=== PATIENT | male | born 1960 | race African-American/Black ===

== ENCOUNTER 2017-06-19 10:54 | Emergency (ER) | payer MEDICAID ==
[~2017-06-19] VITALS: Ht 170.2 cm; Wt 78.0 kg
[2017-06-19 12:21] VITALS: BP 109/71
== END 2017-06-19 14:20 | disposition home or self-care (01) ==
LOC: ER 13:38
DX: J39.9 Disease of upper respiratory tract, unspecified (principal); J44.1 Chronic obstructive pulmonary disease with (acute) exacerbation; R03.0 Elevated blood-pressure reading, without diagnosis of hypertension; K21.9 Gastro-esophageal reflux disease without esophagitis
CPT/HCPCS: 71046; 99284

== ENCOUNTER 2019-06-03 10:23 | Emergency (ER) | payer MEDICAID ==
[~2019-06-03] VITALS: Ht 167.6 cm; Wt 78.0 kg
[2019-06-03] MEDS ORDERED: ALBUTEROL (0.083%) 2.5MG/3ML NEB HHN STA (11:19)
[2019-06-03] MEDS ORDERED: IPRATROPIUM BROMIDE (0.02%) 0.5MG/2.5ML NEB HHN STA (11:19)
[2019-06-03] MEDS ORDERED: PREDNISONE 20MG TABLET PO STA (11:19)
[2019-06-03] MEDS ORDERED: PREDNISONE 20MG TABLET PO ONE (11:45)
[2019-06-03 13:51] VITALS: BP 140/80
== END 2019-06-03 13:52 | disposition home or self-care (01) ==
LOC: ER 10:23
DX: J44.1 Chronic obstructive pulmonary disease with (acute) exacerbation (principal)
CPT/HCPCS: 71045; 94640; 99283; J7512; Z7610

== ENCOUNTER 2020-05-10 10:42 | Emergency (ER) | payer MEDICAID ==
[~2020-05-10] VITALS: Ht 170.2 cm; Wt 75.0 kg
[2020-05-10] MEDS ORDERED: KETOROLAC 60MG/2ML VIAL IM ONE (11:30)
[2020-05-10 12:52] LABS: CLARITY URINE CLEAR (CLEAR); COLOR URINE YELLOW (YELLOW); KETONES URINE NEGATIVE (NEGATIVE); LEUKOCYTE ESTERASE URINE NEGATIVE (NEGATIVE); NITRITE URINE NEGATIVE (NEGATIVE); OCCULT BLOOD URINE NEGATIVE (NEGATIVE); PH URINE 5.5 (4.5-8.0); PROTEIN URINE NEGATIVE (NEGATIVE); SPECIFIC GRAVITY URINE 1.016 (1.005-1.030); UROBILINOGEN URINE 0.2 E.U./dL (0.2-1.0)
[2020-05-10 14:04] VITALS: BP 110/78
== END 2020-05-10 14:05 | disposition home or self-care (01) ==
LOC: ER 10:42
DX: R10.32 Left lower quadrant pain (principal); R30.0 Dysuria; R91.1 Solitary pulmonary nodule; J44.9 Chronic obstructive pulmonary disease, unspecified; M19.90 Unspecified osteoarthritis, unspecified site
CPT/HCPCS: 74176; 81003; 87086; 96372; 99284; J1885

== ENCOUNTER 2020-06-20 09:42 | Emergency (ER) | payer MEDICAID ==
[~2020-06-20] VITALS: Ht 170.2 cm; Wt 78.0 kg
[2020-06-20 09:47] VITALS: BP 139/83
[2020-06-20] MEDS ORDERED: HYDR453.3 TP (10:18)
== END 2020-06-20 10:38 | disposition home or self-care (01) ==
LOC: ER 09:57
DX: L20.9 Atopic dermatitis, unspecified (principal); L30.9 Dermatitis, unspecified
CPT/HCPCS: 99282

== ENCOUNTER 2021-02-06 08:35 | Emergency (ER) | payer MEDICAID ==
[~2021-02-06] VITALS: Ht 170.2 cm; Wt 77.0 kg
[~2021-02-06 08:35] MED LIST: HYDR453.3 TP
[2021-02-06] MEDS ORDERED: HYDROCODONE/ACETAMINOPHEN 5/325MG TABLET PO NR (09:15)
[2021-02-06] MEDS ORDERED: HYDROCODONE/ACETAMINOPHEN 5/325MG TABLET PO ONE (09:15)
[2021-02-06] MEDS ORDERED: LIDOCAINE 5% PATCH TOP SCH (09:15)
[2021-02-06] MEDS ORDERED: DEXAMETHASONE 10 MG/ML VIAL IM NR (09:45)
[2021-02-06] MEDS ORDERED: KETOROLAC 60MG/2ML VIAL IM NR (09:45)
[2021-02-06] MEDS ORDERED: IBUP-2029 MT (11:10)
[2021-02-06] MEDS ORDERED: BACL-141 MT (11:10)
[2021-02-06] MEDS ORDERED: LIDO700A15 TP (11:10)
[2021-02-06 11:30] VITALS: BP 116/80
== END 2021-02-06 11:38 | disposition home or self-care (01) ==
LOC: ER 08:35
DX: M54.50 Low back pain, unspecified (principal); I10 Essential (primary) hypertension; Z87.891 Personal history of nicotine dependence; Z79.899 Other long term (current) drug therapy
CPT/HCPCS: 72100; 96372; 99284; J1100; J1885

== ENCOUNTER 2022-05-01 10:32 | Emergency (ER) | payer MEDICAID ==
[~2022-05-01] VITALS: Ht 170.2 cm; Wt 77.0 kg
[~2022-05-01 10:32] MED LIST changes: +BACL-141 MT; +IBUP-2029 MT; +LIDO700A15 TP
[2022-05-01 11:06] VITALS: BP 132/78
[2022-05-01] MEDS ORDERED: ERYT1OIN6 LEFTEYE (12:10)
== END 2022-05-01 12:55 | disposition home or self-care (01) ==
LOC: ER 10:32
DX: H01.003 Unspecified blepharitis right eye, unspecified eyelid (principal); M19.90 Unspecified osteoarthritis, unspecified site; J44.9 Chronic obstructive pulmonary disease, unspecified
CPT/HCPCS: 99283